=== PATIENT | female | born 1990 | race Caucasian/White ===

== ENCOUNTER 2016-12-20 19:44 | Observation (INO) | payer OTHER ==
[~2016-12-20] VITALS: Ht 152.4 cm; Wt 76.4 kg
[2016-12-20] MEDS ORDERED: FERR325C PO (20:12)
[2016-12-20] MEDS ORDERED: PREN1TAB79 PO (20:12)
[2016-12-20 20:13] VITALS: BP 101/60; PULSE 104; RESP 18; Ht 152.4 cm; Wt 76.4 kg
--- NOTE | 2016-12-20 20:52 | HP ---
Date/Time of Note Date/Time of Note DATE: 12/20/16 TIME: 20:47 OB - History Hx of Present Free Text/Dictation at 36 + weeks GA Chief Complaint: labor contractions : 2 Para: 1 Care: Good Care Obstetrical Complications: None Past Family/Social History * Past Medical, Surgical, Family and Obstetric Histories reviewed from chart. GBS Status: Negative OB Admission Exam Vital Signs Vital Signs Vital Signs Date Time Temp Pulse Resp B/P Pulse Ox O2 Delivery O2 Flow Rate FiO2 12/20/16 20:13 98.5 104 18 101/60 Room Air Physical Exam HEENT: WNL Abdomen: WNL Cervical Dilatation: 2cm Membranes: Intact Heart Rate: 140's Accelerations: Accelerations Present Decelerations: No Decelerations Varibility: Moderate Contractions on Admission: < 5 Minutes Apart Intensity: Moderate OB Assessment/Plan Reason for admission: active labor, labor Plan: Expectant Management Other plan: Anticipate KAREL JOHN Dec 20, 2016 20:52
[2016-12-20] MEDS ORDERED: CARBOPROST 250 MCG INJ IM PRN (21:00)
[2016-12-20] MEDS ORDERED: LACTATED RINGER'S 1,000 ML IV PRN (21:00)
[2016-12-20] MEDS ORDERED: BUTORPHANOL 2 MG INJ IV PRN (21:00)
[2016-12-20] MEDS ORDERED: OXYTOCIN 30 UNITS/LR 500 ML IV PRN (21:00)
[2016-12-20] MEDS ORDERED: LIDOCAINE 1% (MPF) 30 ML INJ INJ PRN (21:00)
[2016-12-20] MEDS ORDERED: OXYTOCIN 30 UNITS/LR 500 ML IV SCH ×2 (21:00)
[2016-12-20] MEDS ORDERED: METHYLERGONOVINE 0.2 MG INJ IM PRN (21:00)
[2016-12-20] MEDS ORDERED: MISOPROSTOL 200 MCG TAB PR PRN (21:00)
[2016-12-20] MEDS ORDERED: AMPICILLIN 2 GM/NS (PMX) 100 ML IV ONE (21:00)
[2016-12-20] MEDS ORDERED: IBUPROFEN 600 MG TAB PO PRN (21:00)
[2016-12-20 21:22] LABS: BASOPHILS % 0.5 % (0.0-2.0); EOSINOPHILS # 0.1 10^3/ul (0.0-0.5); EOSINOPHILS % 0.7 % (0.0-7.0); HEMATOCRIT 35.7 % (37.0-47.0); LYMPHOCYTES % 24.3 % (15.0-51.0); MEAN CORPUSCULAR HEMOGLOBIN 31.1 pg (29.0-33.0); MEAN CORPUSCULAR HGB CONC 33.7 g/dl (32.0-37.0); MEAN CORPUSCULAR VOLUME 92.5 fl (82.0-101.0); MEAN PLATELET VOLUME 8.8 fl (7.4-10.4); MONOCYTE # 0.8 10^3/ul (0.3-0.9); MONOCYTES % 9.8 % (0.0-11.0); NEUTROPHIL # 5.4 10^3/ul (1.6-7.5); NEUTROPHILS % 64.7 % (39.0-77.0); PLATELET COUNT 113 10^3/UL (140-440); RED BLOOD COUNT 3.85 10^6/ul (4.20-5.40); RED CELL DISTRIBUTION WIDTH 12.4 % (11.5-14.5); UNCORRECTED WBC 8.3 10^3/ul (4.8-10.8); WHITE BLOOD COUNT 8.3 10^3/ul (4.8-10.8)
[2016-12-20 21:23] LABS: CONDITION 1
[2016-12-20] MEDS: LACTATED RINGER'S 1,000 ML IV SCH (21:28)
[2016-12-20 21:32] LABS: INR 0.88; PROTIME 11.9 Sec (12.2-14.2); PT RATIO 0.9
[2016-12-20 21:33] LABS: PARTIAL THROMBOPLASTIN TIME 23.5 Sec (25.0-35.0)
--- NOTE | 2016-12-20 22:05 | TRIAGE ---
OB Triage Datetime Report Generated by CPN: 12/20/2016 22:04 Datetime: 12/20/2016 21:24 Vaginal Bleeding: None Maternal Assessment Level of Consciousness: Fully Conscious DTR's/Clonus: DTRs 2+; No Clonus Headache: Denies Blurred Vision: No Respiratory Effort: Unlabored; Regular Rhythm; Equal Expansion Breath Sounds, Left: Clear and Equal Breath Sounds, Right: Clear and Equal Nausea/Vomiting: Denies RUQ Epigastric Pain: Denies Facial Edema: None Fall Risk Assessment History of Falling: (0) No Secondary Diagnosis: (0) No Ambulatory Aid: (0) Bedrest/Nurse Assist Gait: (0) Normal/Bedrest/Immobile Mental Status: (0) Oriented to Own Ability Datetime: 12/20/2016 21:23 Assessment Type: Admission Assessment Vaginal Bleeding: None Maternal Assessment Level of Consciousness: Fully Conscious DTR's/Clonus: DTRs 2+; No Clonus Headache: Denies Blurred Vision: No Respiratory Effort: Unlabored; Regular Rhythm; Equal Expansion Breath Sounds, Left: Clear and Equal Breath Sounds, Right: Clear and Equal Nausea/Vomiting: Denies RUQ Epigastric Pain: Denies Lower Extremities Edema: Bilateral Lower Extremities Degree: 1+ Upper Extremities Edema: None Degree: None Facial Edema: None Fall Risk Assessment History of Falling: (0) No Secondary Diagnosis: (0) No Ambulatory Aid: (0) Bedrest/Nurse Assist IV Therapy: (20) Yes Gait: (0) Normal/Bedrest/Immobile Mental Status: (0) Oriented to Own Ability Fall Score: 20 Fall Risk Score Definition: No Risk: No action required Labor Evaluation Frequency: 2-3 Duration (sec)2399: 50-90 Quality: Moderate Pattern: Normal: <= 5 Contractions in 10 Minutes Resting Tone [place]: Relaxed Heart Rate FHR Baseline Rate: 130 Variability: Moderate 6-25 bpm Accelerations: 15X15 Decelerations: None Category: Category I Pain Assessment Pain Scale: 7 Pain Presence: Intermittent Pain Type: Cramping; Contraction Pain Location: Abdomen; Back; Perineum Vaginal Exam Dilatation (cms): 2.0 Effacement (%): 50 Station: -2 Membrane Status: Intact Datetime: 12/20/2016 21:22 Vaginal Bleeding: None Maternal Assessment Level of Consciousness: Fully Conscious DTR's/Clonus: DTRs 2+; No Clonus Headache: Denies Blurred Vision: No Respiratory Effort: Unlabored; Regular Rhythm; Equal Expansion Breath Sounds, Left: Clear and Equal Breath Sounds, Right: Clear and Equal Nausea/Vomiting: Denies RUQ Epigastric Pain: Denies Facial Edema: None Fall Risk Assessment History of Falling: (0) No Secondary Diagnosis: (0) No Ambulatory Aid: (0) Bedrest/Nurse Assist IV Therapy: (0) No Gait: (0) Normal/Bedrest/Immobile Mental Status: (0) Oriented to Own Ability Fall Score: 0 Fall Risk Score Definition: No Risk: No action required Datetime: 12/20/2016 20:21 Stage of : OB Triage Labor Evaluation Frequency: 2-5 Monitor Mode: External Duration (sec)2399: 60 Quality: Moderate Pattern: Normal: <= 5 Contractions in 10 Minutes Resting Tone [place]: Relaxed Heart Rate FHR Baseline Rate: 135 Monitor Mode: External US FHR Baseline Changes: No Baseline Change Variability: Moderate 6-25 bpm Accelerations: 15X15 Decelerations: None Category: Category I Vaginal Exam Dilatation (cms): 2.0 Effacement (%): 50 Station: -2 Exam By: E Eric Membrane Status: Intact Amniotic Fluid Amount: None Vaginal Bleeding: None Cervix, Consistency: Soft Cervix, Position: Midposition Presentation 'A': Cephalic Datetime: 12/20/2016 20:12 Time of Arrival: 12/20/2016 19:50 EGA: 36.4 Arrived By: Ambulatory Arrived From: Home Chief Complaint: c/o ucs. Denies hx problems this Movement: Present Contractions: Irregular Time Contractions Began: 12/20/2016 18:30 Contractions: Q7-10 Rupture of Membranes: Denies Vaginal Bleeding: None Vaginal Discharge: Denies Recent Sexual Intercouse: Denies Abdominal Trauma: Not Applicable Patient Complaints: Contractions; Urinary Frequency Time Provider Notified: 12/20/2016 20:31 Provider Notified: Dr Jasmine Initial Plan: EFM, SVE, UA Datetime: 12/20/2016 20:02 Maternal Assessment Level of Consciousness: Fully Conscious Headache: Denies Blurred Vision: No Nausea/Vomiting: Denies RUQ Epigastric Pain: Denies Facial Edema: None Labor Evaluation Frequency: placed Monitor Mode: External Resting Tone [place]: Relaxed Monitor Mode: External US Comments: FHT 140 Pain Assessment Pain Scale: 7 Pain Presence: Intermittent Pain Type: Contraction Pain Location: Abdomen
[2016-12-20 22:33] LABS: ADD UMIC YES; URINE BILIRUBIN (Dip) NEGATIVE (NEGATIVE); URINE BLOOD (Dip) NEGATIVE (NEGATIVE); URINE COLOR LT. YELLOW (YELLOW); URINE GLUCOSE (Dip) NEGATIVE (NEGATIVE); URINE KETONES (Dip) NEGATIVE (NEGATIVE); URINE LEUKOCYTE ESTERASE (Dip) 1+ (NEGATIVE); URINE NITRITE (Dip) NEGATIVE (NEGATIVE); URINE TOTAL PROTEIN (Dip) NEGATIVE (NEGATIVE); URINE UROBILINOGEN (Dip) 0.2 E.U./dL (0.1-1.0)
[2016-12-20 22:50] LABS: BACTERIA,URINE FEW; SQUAMOUS EPITHELIAL CELL,UR MODERATE; URINE RBCS NONE SEEN /HPF (0)
[2016-12-20 23:34] LABS: BARBITURATES Negative (NEGATIVE); BENZODIAZEPINES Negative (NEGATIVE); CANNABINOIDS Negative (NEGATIVE); COCAINE Negative (NEGATIVE); OPIATES Negative (NEGATIVE)
[2016-12-21] MEDS ORDERED: AMPICILLIN 1 GM/NS (PMX) 50 ML IV SCH (01:00)
[2016-12-21] MEDS: LACTATED RINGER'S 1,000 ML IV SCH ×3 (01:50→08:33)
--- NOTE | 2016-12-21 18:29 | DS ---
Date/Time of Note Date/Time of Note DATE: 12/21/16 TIME: 17:38 Discharge Summary Admission/Discharge Info Admit Date/Time Admission: Dec 20, 2016 at 20:31 Discharge Date/Time Dec 21, 2016 at 17:00 Final Diagnosis Intrauterine of 36 weeks and 4 days. This patient is a 26 years old, 2, para 1 ,living 1, whose EDC is 2016. She came into labor and delivery room in early labor yesterday. She was having regular contractions. On pelvic examination yesterday her cervix was about 2-1/2 cm dilated and 50% to 60% effaced ,-2 station. Membranes were intact. She was kept in the hospital for about 24 hours. Today on examination her cervix is about 80%effaced, however still about 2-1/2 cm and -2 station with intact membranes. Otherwise her physical examination is normal. heart tone is normal with good variability and accelerations no decelerations. Disposition. Due to lack of progress the condition was discussed with this the patient and she will be discharged home to be seen in the clinic in 4 days. She is advised in case she started her labor pain or any bleeding or rupture of membrane immediately returned to the labor delivery room or [facility]. Laboratory Tests Test 12/20/16 19:45 12/20/16 21:00 Urine Amphetamines Screen Negative Urine Bacteria FEW Urine Barbiturates Negative Urine Benzodiazepines Screen Negative Urine Bilirubin NEGATIVE Urine Cannabinoids Negative Urine Clarity CLEAR Urine Cocaine Screen Negative Urine Color LT. YELLOW Urine Glucose NEGATIVE% Urine Hemoglobin NEGATIVE Urine Ketones NEGATIVE Urine Leukocyte Esterase 1+ Urine Microscopic RBC NONE SEEN/HPF Urine Microscopic WBC 2-5/HPF Urine Nitrite NEGATIVE Urine Opiates Screen Negative Urine Specific [place] 1.010 Urine Squamous Epithelial Cells MODERATE Urine Total Protein NEGATIVE Urine Urobilinogen 0.2 E.U./dL Urine pH 7.0 Activated Partial Thromboplast Time 23.5Sec Basophils # 0.010^3/ul Basophils % 0.5% Eosinophils # 0.110^3/ul Eosinophils % 0.7% Hematocrit 35.7% Hemoglobin 12.0g/dl Hepatitis B Surface Antigen NEGATIVE INR International Normalized Ratio 0.88 Lymphocytes # 2.010^3/ul Lymphocytes % 24.3% Mean Corpuscular Hemoglobin 31.1pg Mean Corpuscular Hemoglobin Concent 33.7g/dl Mean Corpuscular Volume 92.5fl Mean Platelet Volume 8.8fl Monocytes # 0.810^3/ul Monocytes % 9.8% Neutrophils # 5.410^3/ul Neutrophils % 64.7% Nucleated Red Blood Cells # 0.010^3/ul Nucleated Red Blood Cells % 0.0/100WBC Platelet Count 80453^3/UL Prothrombin Time 11.9Sec Prothrombin Time Ratio 0.9 Rapid Plasma Reagin NONREACTIVE Red Blood Count 3.8510^6/ul Red Cell Distribution Width 12.4% White Blood Count 8.310^3/ul Current Medications Medications (Trade) Dose Ordered Sig/Daija Route PRN Reason Start Time Stop Time Status Last Admin Dose Admin Lactated Ringer's 1,000 ml @ 125 mls/hr Q8H IV 12/20/16 20:33 12/21/16 17:27 DC 12/21/16 08:33 Ampicillin 100 ml @ 100 mls/hr ONCE ONCE IV 12/20/16 21:00 12/20/16 21:31 DC Ampicillin (Ampicillin 1 Gm/ NS (Pmx)) 50 ml @ 100 mls/hr Q4H IV 12/21/16 01:00 12/21/16 01:00 DC Butorphanol Tartrate (Stadol) 2 mg Q2H PRN IV PAIN 12/20/16 21:00 12/21/16 17:27 DC Lidocaine 30 ml 30 ml ONCE PRN INJ EPISIOTOMY/TEARING 12/20/16 21:00 12/21/16 17:27 DC Oxytocin/Lactated Ringer's 500 ml @ 125 mls/hr ONCE -MAY REPEAT X1 IV 12/20/16 21:00 12/21/16 17:27 DC Oxytocin/Lactated Ringer's 500 ml @ 125 mls/hr ONCE IV 12/20/16 21:00 12/21/16 17:27 DC Ibuprofen 600 mg 600 mg ONCE PRN PO Mild Pain (Pain Score 1-3) 12/20/16 21:00 12/21/16 17:27 DC Lactated Ringer's 1,000 ml @ 2,000 mls/hr Q30M PRN IV PRE-EPIDURAL BOLUS 12/20/16 21:00 12/21/16 17:27 DC Oxytocin/Lactated Ringer's 500 ml @ 0 mls/hr ONCE PRN IV For Hemorrhage Management 12/20/16 21:00 12/21/16 17:27 DC Methylergonovine Maleate (Methergine) 0.2 mg ONCE PRN IM VAGINAL BLEEDING 12/20/16 21:00 12/21/16 17:27 DC Carboprost Tromethamine (Hemabate) 250 mcg ONCE PRN IM VAGINAL BLEEDING 12/20/16 21:00 12/21/16 17:27 DC Misoprostol (Cytotec) 1,000 mcg ONCE PRN MI VAGINAL BLEEDING 12/20/16 21:00 12/21/16 17:27 DC Patient Condition: Good Consults [employer] Procedures Antibiotic treatment Hx of Present Illness see discharge note Hospital Course rapid recovery Home Meds Reported Medications Ferrous Sulfate (Iron) 325 Mg Capsule.er, 325 MG PO DAILY, CAP 12/20/16 Vit W-Ca,Fe,FA(<1 mg) ( Vitamins) 1 Each Tablet, 1 EACH PO DAILY, TAB 12/20/16 Follow-up Plan To be seen in the clinic in 4 days Pending Labs Laboratory Tests Test 12/20/16 19:45 12/20/16 21:00 Urine Amphetamines Screen Negative (NEGATIVE) Urine Bacteria FEW Urine Barbiturates Negative (NEGATIVE) Urine Benzodiazepines Screen Negative (NEGATIVE) Urine Bilirubin NEGATIVE (NEGATIVE) Urine Cannabinoids Negative (NEGATIVE) Urine Clarity CLEAR (CLEAR) Urine Cocaine Screen Negative (NEGATIVE) Urine Color LT. YELLOW (YELLOW) Urine Glucose NEGATIVE% (NEGATIVE) Urine Hemoglobin NEGATIVE (NEGATIVE) Urine Ketones NEGATIVE (NEGATIVE) Urine Leukocyte Esterase 1+ (NEGATIVE) Urine Microscopic RBC NONE SEEN/HPF (0) Urine Microscopic WBC 2-5/HPF (0) Urine Nitrite NEGATIVE (NEGATIVE) Urine Opiates Screen Negative (NEGATIVE) Urine Specific [place] 1.010 (1.003-1.030) Urine Squamous Epithelial Cells MODERATE Urine Total Protein NEGATIVE (NEGATIVE) Urine Urobilinogen 0.2 E.U./dL (0.1-1.0) Urine pH 7.0 (5.0-9.0) Activated Partial Thromboplast Time 23.5Sec (25.0-35.0) Basophils # 0.010^3/ul (0.0-0.1) Basophils % 0.5% (0.0-2.0) Eosinophils # 0.110^3/ul (0.0-0.5) Eosinophils % 0.7% (0.0-7.0) Hematocrit 35.7% (37.0-47.0) Hemoglobin 12.0g/dl (12.0-16.0) Hepatitis B Surface Antigen NEGATIVE (NEGATIVE) INR International Normalized Ratio 0.88 Lymphocytes # 2.010^3/ul (0.8-2.9) Lymphocytes % 24.3% (15.0-51.0) Mean Corpuscular Hemoglobin 31.1pg (29.0-33.0) Mean Corpuscular Hemoglobin Concent 33.7g/dl (32.0-37.0) Mean Corpuscular Volume 92.5fl (82.0-101.0) Mean Platelet Volume 8.8fl (7.4-10.4) Monocytes # 0.810^3/ul (0.3-0.9) Monocytes % 9.8% (0.0-11.0) Neutrophils # 5.410^3/ul (1.6-7.5) Neutrophils % 64.7% (39.0-77.0) Nucleated Red Blood Cells # 0.010^3/ul (0.0-0.0) Nucleated Red Blood Cells % 0.0/100WBC (0.0-0.0) Platelet Count 24433^3/UL (140-440) Prothrombin Time 11.9Sec (12.2-14.2) Prothrombin Time Ratio 0.9 Rapid Plasma Reagin NONREACTIVE (NR) Red Blood Count 3.8510^6/ul (4.20-5.40) Red Cell Distribution Width 12.4% (11.5-14.5) White Blood Count 8.310^3/ul (4.8-10.8) BOBO LAMA MD Dec 21, 2016 17:50
== END 2016-12-21 17:00 | disposition home or self-care (01) ==
LOC: OBT 19:44 → L-D 19:44 → INTOOBSV 20:31 → OBT 20:31 → L-D 20:31
PROVIDERS: ADMIT Obstetrics & Gynecology; ATTEND Obstetrics & Gynecology
DX: O47.03 False labor before 37 completed weeks of gestation, third trimester (principal); Z3A.36 36 weeks gestation of pregnancy
CPT/HCPCS: 80307; 81001; 85025; 85610; 85730; 86592; 86900; 86901; 87340; J7120; Z7500; 81003; 99217; G0378

== ENCOUNTER 2017-01-08 20:55 | Inpatient (IN) | payer OTHER ==
[~2017-01-08] VITALS: Ht 152.4 cm; Wt 78.2 kg
[2017-01-08 20:53] VITALS: Ht 152.4 cm; Wt 78.2 kg
[~2017-01-08 20:55] MED LIST: FERR325C PO; PREN1TAB79 PO
[2017-01-08 21:00] VITALS: BP 119/76; PULSE 76; RESP 20
[2017-01-08] MEDS ORDERED: LACTATED RINGER'S 1,000 ML IV SCH (21:08)
--- NOTE | 2017-01-08 21:16 | TRIAGE ---
OB Triage Datetime Report Generated by CPN: 01/08/2017 21:15 Datetime: 01/08/2017 21:06 Assessment Type: Admission Assessment Maternal Assessment Level of Consciousness: Fully Conscious DTR's/Clonus: DTRs 2+; No Clonus Blurred Vision: No Breath Sounds, Left: Clear and Equal Breath Sounds, Right: Clear and Equal Nausea/Vomiting: Denies RUQ Epigastric Pain: Denies Lower Extremities Edema: Bilateral Lower Extremities Degree: 1+ Upper Extremities Edema: None Degree: None Facial Edema: None Fall Risk Assessment History of Falling: (0) No Secondary Diagnosis: (0) No Ambulatory Aid: (0) Bedrest/Nurse Assist IV Therapy: (0) No Gait: (0) Normal/Bedrest/Immobile Mental Status: (0) Oriented to Own Ability Fall Score: 0 Fall Risk Score Definition: No Risk: No action required Pain Assessment Pain Scale: 10 Pain Presence: Intermittent Pain Type: Contraction Pain Location: Abdomen Pain Goal: 0 Membrane Status: Intact Datetime: 01/08/2017 21:05 Time of Arrival: 01/08/2017 21:05 EGA: 39.2 Arrived By: Ambulatory Arrived From: Home Datetime: 01/08/2017 21:00 Stage of : OB Triage Assessment Type: Triage Maternal Assessment Level of Consciousness: Fully Conscious DTR's/Clonus: DTRs 2+; No Clonus Headache: Denies Blurred Vision: No Respiratory Effort: Unlabored; Regular Rhythm; Equal Expansion Breath Sounds, Left: Clear and Equal Breath Sounds, Right: Clear and Equal Nausea/Vomiting: Denies RUQ Epigastric Pain: Denies Facial Edema: None Temperature Route: Oral Fall Risk Assessment History of Falling: (0) No Secondary Diagnosis: (0) No Ambulatory Aid: (0) Bedrest/Nurse Assist IV Therapy: (0) No Gait: (0) Normal/Bedrest/Immobile Mental Status: (0) Oriented to Own Ability Fall Score: 0 Fall Risk Score Definition: No Risk: No action required Pain Assessment Pain Scale: 8 Pain Presence: Intermittent Pain Type: Cramping Pain Location: Abdomen Datetime: 01/08/2017 20:58 Vaginal Exam Dilatation (cms): 9.0 Effacement (%): 90 Station: -2 Exam By: Kapil Christiansen RN Membrane Status: Bulging Presentation 'A': Cephalic Datetime: 01/08/2017 20:55 Time of Arrival: 01/08/2017 20:53 EGA: 39.2 Arrived By: Wheelchair Arrived From: Home Chief Complaint: UC's since 193 Movement: Present Contractions: Regular Time Contractions Began: 01/08/2017 19:30 Contractions: Every 5 minutes Rupture of Membranes: Denies Vaginal Bleeding: Scant Vaginal Discharge: Denies Recent Sexual Intercouse: Denies Abdominal Trauma: Not Applicable Patient Complaints: Contractions Time Provider Notified: 01/08/2017 21:00 Provider Notified: Dr. Gutierrez Initial Plan: CEFM, VE Datetime: 12/21/2016 16:40 Labor Evaluation Frequency: X4 Monitor Mode: External Duration (sec)2399: 70-120 Pattern: Normal: <= 5 Contractions in 10 Minutes Resting Tone [place]: Relaxed Contraction Comments: PT. DENIES FEELING PAIN OR UC'S Heart Rate FHR Baseline Rate: 130 Monitor Mode: External US Variability: Moderate 6-25 bpm Accelerations: 15X15 Decelerations: None Category: Category I Pain Presence: None/Denies Datetime: 12/21/2016 16:12 Stage of : Labor Temperature Route: Oral Labor Evaluation Frequency: IRREG Monitor Mode: External Duration (sec)2399: 90-120 Pattern: Normal: <= 5 Contractions in 10 Minutes Resting Tone [place]: Relaxed Heart Rate FHR Baseline Rate: 120 Monitor Mode: External US Variability: Moderate 6-25 bpm Accelerations: 15X15 Decelerations: None Category: Category I Pain Presence: None/Denies Datetime: 12/21/2016 16:02 Vaginal Exam Dilatation (cms): 2.5 Effacement (%): 80 Station: -2 Exam By: DR. ALEXIS. Datetime: 12/21/2016 15:37 Contraction Comments: pt. denies feeling pain or uc's Datetime: 12/21/2016 14:19 Labor Evaluation Frequency: IRREGULAR Duration (sec)2399: 60-80 Quality: Mild Pattern: Normal: <= 5 Contractions in 10 Minutes Resting Tone [place]: Relaxed Heart Rate FHR Baseline Rate: 130 Monitor Mode: External US FHR Baseline Changes: No Baseline Change Variability: Moderate 6-25 bpm Accelerations: 15X15 Decelerations: None Category: Category I Datetime: 12/21/2016 12:06 Comments: BACK TO BED Datetime: 12/21/2016 11:49 Labor Evaluation Frequency: OCCASIONAL Monitor Mode: External Duration (sec)2399: 60-80 Quality: Mild Pattern: Normal: <= 5 Contractions in 10 Minutes Resting Tone [place]: Relaxed Heart Rate FHR Baseline Rate: 135 Monitor Mode: External US FHR Baseline Changes: No Baseline Change Variability: Moderate 6-25 bpm Accelerations: 15X15 Decelerations: None Category: Category I Pain Assessment Pain Scale: 0 Pain Presence: None/Denies Membrane Status: Intact Datetime: 12/21/2016 09:54 Contraction Comments: given another toco Datetime: 12/21/2016 09:50 Assessment Type: Ongoing Assessment Maternal Assessment Level of Consciousness: Fully Conscious DTR's/Clonus: DTRs 2+; No Clonus Headache: Denies Blurred Vision: No Respiratory Effort: Unlabored; Regular Rhythm; Equal Expansion Breath Sounds, Left: Clear and Equal Breath Sounds, Right: Clear and Equal Nausea/Vomiting: Denies RUQ Epigastric Pain: Denies Lower Extremities Edema: None Degree: None Upper Extremities Edema: None Degree: None Facial Edema: None Fall Risk Assessment History of Falling: (0) No Secondary Diagnosis: (0) No Ambulatory Aid: (0) Bedrest/Nurse Assist IV Therapy: (20) Yes Gait: (0) Normal/Bedrest/Immobile Mental Status: (0) Oriented to Own Ability Fall Score: 20 Fall Risk Score Definition: No Risk: No action required Datetime: 12/21/2016 09:49 Labor Evaluation Frequency: 0 Monitor Mode: External Resting Tone [place]: Relaxed Heart Rate FHR Baseline Rate: 140 Monitor Mode: External US FHR Baseline Changes: No Baseline Change Variability: Moderate 6-25 bpm Accelerations: 15X15 Decelerations: None Category: Category I Pain Assessment Pain Scale: 0 Pain Presence: None/Denies Datetime: 12/21/2016 08:49 Labor Evaluation Frequency: IRREG Monitor Mode: External Duration (sec)2399: 60-100 Pattern: Normal: <= 5 Contractions in 10 Minutes Resting Tone [place]: Relaxed Heart Rate FHR Baseline Rate: 130 Monitor Mode: External US Variability: Moderate 6-25 bpm Accelerations: 15X15 Decelerations: None Category: Category I Pain Assessment Pain Scale: 3 Pain Presence: Intermittent Pain Type: Contraction Pain Location: Abdomen Pain Relief Measures: Comfort Measures Datetime: 12/21/2016 08:03 Labor Evaluation Frequency: IRREG Monitor Mode: External Duration (sec)2399: 60-110 Pattern: Normal: <= 5 Contractions in 10 Minutes Resting Tone [place]: Relaxed Heart Rate FHR Baseline Rate: 125 Monitor Mode: External US Variability: Moderate 6-25 bpm Accelerations: 15X15 Decelerations: None Category: Category I Datetime: 12/21/2016 07:32 Assessment Type: Ongoing Assessment Maternal Assessment Level of Consciousness: Fully Conscious DTR's/Clonus: DTRs 2+; No Clonus Headache: Denies Blurred Vision: No Respiratory Effort: Unlabored; Regular Rhythm; Equal Expansion Breath Sounds, Left: Clear and Equal Breath Sounds, Right: Clear and Equal Nausea/Vomiting: Denies RUQ Epigastric Pain: Denies Lower Extremities Edema: None Degree: None Upper Extremities Edema: None Degree: None Facial Edema: None Fall Risk Assessment History of Falling: (0) No Secondary Diagnosis: (0) No Ambulatory Aid: (0) Bedrest/Nurse Assist IV Therapy: (20) Yes Gait: (0) Normal/Bedrest/Immobile Mental Status: (0) Oriented to Own Ability Fall Score: 20 Fall Risk Score Definition: No Risk: No action required Labor Evaluation Frequency: 2-5 Monitor Mode: External Duration (sec)2399: 70-120 Pattern: Normal: <= 5 Contractions in 10 Minutes Resting Tone [place]: Relaxed Heart Rate FHR Baseline Rate: 125 Monitor Mode: External US Variability: Moderate 6-25 bpm Accelerations: 15X15 Decelerations: None Category: Category I Pain Presence: None/Denies Datetime: 12/21/2016 07:02 Labor Evaluation Frequency: 3-6 Monitor Mode: External Duration (sec)2399: 30-60 Quality: Mild Pattern: Normal: <= 5 Contractions in 10 Minutes Resting Tone [place]: Relaxed Heart Rate FHR Baseline Rate: 125 Monitor Mode: External US FHR Baseline Changes: No Baseline Change Variability: Moderate 6-25 bpm Accelerations: 10X10 Decelerations: None Category: Category I Datetime: 12/21/2016 06:48 Vaginal Exam Dilatation (cms): 2.5 Effacement (%): 50 Station: -2 Exam By: N LONG, RN Membrane Status: Intact Datetime: 12/21/2016 06:29 Labor Evaluation Frequency: 1-7 Monitor Mode: External Duration (sec)2399: 60-90 Quality: Mild Pattern: Normal: <= 5 Contractions in 10 Minutes Resting Tone [place]: Relaxed Heart Rate FHR Baseline Rate: 130 Monitor Mode: External US FHR Baseline Changes: No Baseline Change Variability: Moderate 6-25 bpm Accelerations: 10X10 Decelerations: None Category: Category I Datetime: 12/21/2016 06:22 Pain Assessment Pain Scale: 0 Pain Presence: None/Denies Pain Type: N/A Pain Goal: 0 Pain Relief Measures: Comfort Measures Datetime: 12/21/2016 05:30 Labor Evaluation Frequency: 2-5 Monitor Mode: External Duration (sec)2399: 60-120 Quality: Mild Resting Tone [place]: Relaxed Heart Rate FHR Baseline Rate: 130 Monitor Mode: External US FHR Baseline Changes: No Baseline Change Variability: Minimal - Undetectable to <=5 bpm (Annotations: with periods of moderate variability noted; pt sleeping and variability increases with side, positional change to lateral, and iv bolus) Accelerations: 15X15 Decelerations: None Category: Category I Datetime: 12/21/2016 05:22 Pain Assessment Pain Scale: 0 Pain Presence: None/Denies Pain Goal: 0 Pain Relief Measures: Comfort Measures Datetime: 12/21/2016 05:10 Monitor Mode: External US Datetime: 12/21/2016 05:00 Monitor Mode: External US Datetime: 12/21/2016 04:30 Labor Evaluation Frequency: 3-6 Monitor Mode: External Duration (sec)2399: 60-120 Quality: Mild Resting Tone [place]: Relaxed Heart Rate FHR Baseline Rate: 130 Monitor Mode: External US FHR Baseline Changes: No Baseline Change Variability: Moderate 6-25 bpm Accelerations: 15X15 Decelerations: None Category: Category I Datetime: 12/21/2016 04:22 Temperature Route: Oral Pain Assessment Pain Scale: 6 Pain Presence: Intermittent Pain Type: Contraction Pain Location: Abdomen Pain Goal: 6 Pain Relief Measures: Comfort Measures Datetime: 12/21/2016 04:08 Interventions: Side to Side; IV Bolus Datetime: 12/21/2016 03:37 Monitor Mode: External Monitor Mode: External US Datetime: 12/21/2016 03:30 Labor Evaluation Frequency: 2-4 Monitor Mode: External Duration (sec)2399: 60-120 Quality: Mild Resting Tone [place]: Relaxed Heart Rate FHR Baseline Rate: 130 Monitor Mode: External US FHR Baseline Changes: No Baseline Change Variability: Moderate 6-25 bpm Accelerations: 15X15 Decelerations: Early Category: Category I Datetime: 12/21/2016 03:22 Pain Assessment Pain Scale: 6 Pain Presence: Intermittent Pain Type: Contraction Pain Location: Abdomen Pain Goal: 6 Pain Relief Measures: Comfort Measures Datetime: 12/21/2016 02:35 Interventions: Side to Side; IV Bolus Datetime: 12/21/2016 02:32 Monitor Mode: External Datetime: 12/21/2016 02:29 Labor Evaluation Frequency: 2-3 Monitor Mode: External Duration (sec)2399: 60-70 Quality: Mild Resting Tone [place]: Relaxed Interventions: Side to Side; IV Bolus Heart Rate FHR Baseline Rate: 130 Monitor Mode: External US FHR Baseline Changes: No Baseline Change Accelerations: 15X15 Decelerations: Variable (Annotations: X1 DOWN TO 100) Category: Category II Datetime: 12/21/2016 02:22 Pain Assessment Pain Scale: 6 Pain Presence: Intermittent Pain Type: Contraction Pain Location: Abdomen Pain Goal: 6 Pain Relief Measures: Comfort Measures Datetime: 12/21/2016 02:01 Monitor Mode: External US Datetime: 12/21/2016 01:45 Monitor Mode: External US Datetime: 12/21/2016 01:34 Interventions: Side to Side Datetime: 12/21/2016 01:30 Labor Evaluation Frequency: 2-3 Monitor Mode: External Duration (sec)2399: 60-70 Quality: Mild Resting Tone [place]: Relaxed Heart Rate FHR Baseline Rate: 130 Monitor Mode: External US FHR Baseline Changes: No Baseline Change Variability: Moderate 6-25 bpm Accelerations: 15X15 Decelerations: None Category: Category I Datetime: 12/21/2016 01:22 Pain Assessment Pain Scale: 6 Pain Presence: Intermittent Pain Type: Contraction Pain Location: Abdomen Pain Goal: 6 Pain Relief Measures: Comfort Measures Datetime: 12/21/2016 00:30 Labor Evaluation Frequency: 2-3 Monitor Mode: External Duration (sec)2399: 60-70 Quality: Mild Resting Tone [place]: Relaxed Heart Rate FHR Baseline Rate: 130 Monitor Mode: External US FHR Baseline Changes: No Baseline Change Variability: Moderate 6-25 bpm Accelerations: 15X15 Decelerations: None Category: Category I Datetime: 12/21/2016 00:22 Pain Assessment Pain Scale: 6 Pain Presence: Intermittent Pain Type: Contraction Pain Location: Abdomen Pain Goal: 6 Pain Relief Measures: Comfort Measures Datetime: 12/21/2016 00:06 Monitor Mode: External US Datetime: 12/20/2016 23:52 Monitor Mode: External US Datetime: 12/20/2016 23:37 Assessment Type: Ongoing Assessment Maternal Assessment Level of Consciousness: Fully Conscious DTR's/Clonus: DTRs 2+; No Clonus Headache: Denies Blurred Vision: No Respiratory Effort: Unlabored; Regular Rhythm; Equal Expansion Breath Sounds, Left: Clear and Equal Breath Sounds, Right: Clear and Equal Nausea/Vomiting: Denies RUQ Epigastric Pain: Denies Lower Extremities Edema: None Degree: None Upper Extremities Edema: None Degree: None Facial Edema: None Temperature Route: Oral Fall Risk Assessment History of Falling: (0) No Secondary Diagnosis: (0) No Ambulatory Aid: (0) Bedrest/Nurse Assist IV Therapy: (0) No Gait: (0) Normal/Bedrest/Immobile Mental Status: (0) Oriented to Own Ability Fall Score: 0 Fall Risk Score Definition: No Risk: No action required Labor Evaluation Frequency: 2-3 Monitor Mode: External Duration (sec)2399: 60-70 Quality: Mild Resting Tone [place]: Relaxed Heart Rate FHR Baseline Rate: 130 Monitor Mode: External US FHR Baseline Changes: No Baseline Change Variability: Moderate 6-25 bpm Accelerations: 15X15 Decelerations: None Category: Category I Pain Assessment Pain Scale: 6 Pain Presence: Intermittent Pain Type: Contraction Pain Location: Abdomen Pain Goal: 6 Pain Relief Measures: Comfort Measures (Annotations: PAIN MANAGMENT DISCUSSED; PAIN MEDS REFUSED; PT STATES SHE WILL ASK IF SHE NEEDS MEDS BUT AT THIS TIME SHE IS SURE SHE WANTS TO TRY TO DELIVER WI THOUT NEEDING ANY PAIN MED) Vaginal Exam Dilatation (cms): 2.0 Effacement (%): 50 Station: -2 Membrane Status: Intact Datetime: 12/20/2016 23:00 Labor Evaluation Frequency: 2-3 Monitor Mode: External Duration (sec)2399: 50-90 Quality: Moderate Pattern: Normal: <= 5 Contractions in 10 Minutes Resting Tone [place]: Relaxed Heart Rate FHR Baseline Rate: 130 Monitor Mode: External US FHR Baseline Changes: No Baseline Change Variability: Moderate 6-25 bpm Accelerations: 15X15 Decelerations: None Category: Category I Pain Assessment Pain Scale: 7 Pain Presence: Intermittent Pain Type: Contraction Pain Location: Abdomen Pain Assessment Comments: PT DECLINES PAIN MEDICATION AT THIS TIME Datetime: 12/20/2016 22:00 Labor Evaluation Frequency: 2-3 Monitor Mode: External Duration (sec)2399: 50-90 Quality: Moderate Pattern: Normal: <= 5 Contractions in 10 Minutes Resting Tone [place]: Relaxed Heart Rate FHR Baseline Rate: 130 Monitor Mode: External US FHR Baseline Changes: No Baseline Change Variability: Moderate 6-25 bpm Accelerations: 15X15 Decelerations: None Category: Category I Datetime: 12/20/2016 21:23 Fall Score: 20 Fall Risk Score Definition: No Risk: No action required Datetime: 12/20/2016 21:22 Fall Score: 0 Fall Risk Score Definition: No Risk: No action required Datetime: 12/20/2016 20:31 Stage of : OB Triage Labor Evaluation Frequency: 2-3 Monitor Mode: External Quality: Moderate Pattern: Normal: <= 5 Contractions in 10 Minutes Resting Tone [place]: Relaxed Heart Rate FHR Baseline Rate: 135 Monitor Mode: External US FHR Baseline Changes: No Baseline Change Variability: Moderate 6-25 bpm Accelerations: 15X15 Decelerations: None Category: Category I Datetime: 12/20/2016 20:12 EGA: 36.4
[2017-01-08] MEDS ORDERED: LACTATED RINGER'S 1,000 ML IV PRN (21:30)
[2017-01-08] MEDS ORDERED: OXYTOCIN 30 UNITS/LR 500 ML IV SCH ×2 (21:30)
[2017-01-08] MEDS ORDERED: ACETAMINOPHEN/CODEINE #3 TAB PO PRN (21:30)
[2017-01-08] MEDS ORDERED: OXYTOCIN 30 UNITS/LR 500 ML IV PRN (21:30)
[2017-01-08] MEDS ORDERED: IBUPROFEN 600 MG TAB PO PRN (21:30)
[2017-01-08] MEDS ORDERED: BUTORPHANOL 2 MG INJ IV PRN (21:30)
[2017-01-08] MEDS ORDERED: METHYLERGONOVINE 0.2 MG INJ IM PRN (21:30)
[2017-01-08] MEDS ORDERED: LIDOCAINE 1% (MPF) 30 ML INJ INJ PRN (21:30)
[2017-01-08] MEDS ORDERED: MISOPROSTOL 200 MCG TAB PR PRN (21:30)
[2017-01-08] MEDS ORDERED: CARBOPROST 250 MCG INJ IM PRN (21:30)
[2017-01-08 21:35] LABS: BASOPHILS % 0.4 % (0.0-2.0); EOSINOPHILS % 0.5 % (0.0-7.0); HEMATOCRIT 36.9 % (37.0-47.0); HEMOGLOBIN 12.6 g/dl (12.0-16.0); INR 0.86; LYMPHOCYTES # 3.1 10^3/ul (0.8-2.9); LYMPHOCYTES % 33.5 % (15.0-51.0); MEAN CORPUSCULAR HEMOGLOBIN 31.7 pg (29.0-33.0); MEAN CORPUSCULAR HGB CONC 34.3 g/dl (32.0-37.0); MEAN CORPUSCULAR VOLUME 92.6 fl (82.0-101.0); MEAN PLATELET VOLUME 9.8 fl (7.4-10.4); MONOCYTES % 10.8 % (0.0-11.0); NEUTROPHIL # 5.1 10^3/ul (1.6-7.5); NEUTROPHILS % 54.8 % (39.0-77.0); PLATELET COUNT 133 10^3/UL (140-440); PROTIME 11.7 Sec (12.2-14.2); PT RATIO 0.9; RED BLOOD COUNT 3.98 10^6/ul (4.20-5.40); RED CELL DISTRIBUTION WIDTH 12.9 % (11.5-14.5); UNCORRECTED WBC 9.3 10^3/ul (4.8-10.8); WHITE BLOOD COUNT 9.3 10^3/ul (4.8-10.8)
[2017-01-08 21:36] LABS: PARTIAL THROMBOPLASTIN TIME 23.5 Sec (25.0-35.0)
[2017-01-08 21:51] LABS: CONDITION 1
--- NOTE | 2017-01-08 22:23 | LDN ---
Date/Time of Note Date/Time of Note DATE: 01/08/17 TIME: 22:18 Delivery Summary Normal spontaneous vaginal delivery of a baby girl from ELYSIA position shoulders delivered with no difficulty baby's body followed nasal oropharyngeal suction was performed cord clamp after sterile conversation pleasant spontaneous expulsion inspected complete patient sustained small first-degree perineal laceration repair with 3-0 Vicryl estimated blood loss 200 mL Placenta Delivered: Spontaneously Meconium: none Perineum intact?: No Perineal laceration repair: First-degree perineal laceration repaired with 3-0 Vicryl Anesthesia type: Local Sponge & Needle done & correct: Yes All needle counts correct: Yes Any foreign bodies felt in the: No Problems: Infant Delivery Information Sex Sex: female Apgars 1 Minute: 9 5 Minute: 9 Suctioning Nose & mouth suctioned at figu[place]a: Yes Delee suction performed: No Umbilical Cord Umbilical cord with: 3 Vessels Cord presentations: no nuchal cord RED GOODE MD Jan 08, 2017 22:23
--- NOTE | 2017-01-08 22:31 | HP ---
Date/Time of Note Date/Time of Note DATE: 01/08/17 TIME: 22:23 OB - History Hx of Present Free Text/Dictation 26 years old female admitted to [facility] 39 weeks gestation in active labor, pelvic examination on admission cervix 9 cm dilated 100% effaced intact membrane vertex presentation at 0 station History of present , patient has been getting her care at [facility] and her is not complicated with - induced hypertension and gestational diabetes or any other medical or surgical conditions LION HUNTER history menarche at age 12. 28-32 days lasting for 5 days history of 1 previous with normal vaginal delivery Allergies denies allergy to any known medication Social habit.denies smoking or drinking Review of system within normal Estimated Due Date: Jan 13, 2017 : 2 Para: 1 Care: Good Care Ultrasounds: Normal mid trimester US Obstetrical Complications: None Medical Complications: None Past Family/Social History * Past Medical, Surgical, Family and Obstetric Histories reviewed from chart. Rubella: immune RPR/VDRL: Negative GBS Status: Negative HBsAG: Negative OB Admission Exam Vital Signs Vital Signs Vital Signs Date Time Temp Pulse Resp B/P Pulse Ox O2 Delivery O2 Flow Rate FiO2 01/08/17 21:00 97.7 76 20 119/76 Room Air Physical Exam HEENT: WNL Heart: Rhythm Normal Lungs: Clear, Equal Abdomen: WNL Extremities: Normal Reflexes: Normal Cervical Dilatation: 9cm Effacement: 100% Station: -1 Membranes: Intact Heart Rate: 130's Accelerations: Accelerations Present Varibility: Moderate Contractions on Admission: < 5 Minutes Apart Intensity: Moderate Last 72 hours Lab Results CBC & BMP 01/08/17 20:50 RED GOODE MD Jan 08, 2017 22:31
[2017-01-08 23:40] VITALS: BP 121/66; PULSE 69; RESP 20
[2017-01-09] MEDS ORDERED: ACETAMINOPHEN/CODEINE #3 TAB PO PRN ×2 (00:30)
[2017-01-09] MEDS ORDERED: LANOLIN 7 GM TUBE TOP PRN (00:30)
[2017-01-09] MEDS ORDERED: DIBUCAINE 1% 30 GM OINT PR PRN (00:30)
[2017-01-09] MEDS ORDERED: WITCH HAZEL/GLYCERIN PAD PR PRN (00:30)
[2017-01-09] MEDS ORDERED: ONDANSETRON 4 MG INJ IV PRN (00:30)
[2017-01-09] MEDS ORDERED: OXYCODONE/ASPIRIN (4.88/325) TAB PO PRN ×2 (00:30)
[2017-01-09] MEDS ORDERED: ACETAMINOPHEN 325 MG TAB PO PRN (00:30)
[2017-01-09] MEDS ORDERED: BENZOCAINE 20% 56 ML SPRAY TOP PRN (00:30)
[2017-01-09] MEDS: OXYTOCIN 30 UNITS/LR 500 ML IV SCH ×2 (03:40→04:21)
[2017-01-09 04:40] VITALS: BP 102/58; PULSE 68; RESP 18
[2017-01-09] MEDS: IBUPROFEN 600 MG TAB PO SCH ×3 (05:29→18:17)
[2017-01-09 06:59] LABS: BASOPHILS % 0.3 % (0.0-2.0); EOSINOPHILS % 0.1 % (0.0-7.0); HEMATOCRIT 31.8 % (37.0-47.0); LYMPHOCYTES # 1.3 10^3/ul (0.8-2.9); MEAN CORPUSCULAR HEMOGLOBIN 32.2 pg (29.0-33.0); MEAN CORPUSCULAR HGB CONC 34.6 g/dl (32.0-37.0); MEAN CORPUSCULAR VOLUME 93.1 fl (82.0-101.0); MEAN PLATELET VOLUME 9.9 fl (7.4-10.4); MONOCYTE # 1.1 10^3/ul (0.3-0.9); MONOCYTES % 10.2 % (0.0-11.0); NEUTROPHIL # 7.9 10^3/ul (1.6-7.5); NEUTROPHILS % 76.4 % (39.0-77.0); PLATELET COUNT 104 10^3/UL (140-440); RED BLOOD COUNT 3.42 10^6/ul (4.20-5.40); RED CELL DISTRIBUTION WIDTH 12.6 % (11.5-14.5); UNCORRECTED WBC 10.4 10^3/ul (4.8-10.8); WHITE BLOOD COUNT 10.4 10^3/ul (4.8-10.8)
[2017-01-09 07:16] LABS: CONDITION 1
[2017-01-09 08:30] VITALS: BP 99/63; PULSE 74; RESP 18
[2017-01-09] MEDS: SENNA/DOCUSATE NA (8.6MG/50MG) TAB PO SCH ×2 (09:34→21:45)
[2017-01-09 12:00] VITALS: BP 103/55; PULSE 76; RESP 19
[2017-01-09 16:19] VITALS: BP 98/64; PULSE 73; RESP 17
--- NOTE | 2017-01-09 16:24 | PN ---
Date/Time of Note Date/Time of Note DATE: 01/09/17 TIME: 16:23 OB Subjective Subjective Subjective day 1 Afebrile, vital sign stable, abdomen soft, uterus firm, lochia normal, extremity normal Laboratory Tests Test 01/08/17 20:50 01/09/17 06:37 Activated Partial Thromboplast Time 23.5Sec Basophils # 0.010^3/ul 0.010^3/ul Basophils % 0.4% 0.3% Eosinophils # 0.010^3/ul 0.010^3/ul Eosinophils % 0.5% 0.1% Hematocrit 36.9% 31.8% Hemoglobin 12.6g/dl 11.0g/dl INR International Normalized Ratio 0.86 Lymphocytes # 3.110^3/ul 1.310^3/ul Lymphocytes % 33.5% 13.0% Mean Corpuscular Hemoglobin 31.7pg 32.2pg Mean Corpuscular Hemoglobin Concent 34.3g/dl 34.6g/dl Mean Corpuscular Volume 92.6fl 93.1fl Mean Platelet Volume 9.8fl 9.9fl Monocytes # 1.010^3/ul 1.110^3/ul Monocytes % 10.8% 10.2% Neutrophils # 5.110^3/ul 7.910^3/ul Neutrophils % 54.8% 76.4% Nucleated Red Blood Cells # 0.010^3/ul 0.010^3/ul Nucleated Red Blood Cells % 0.0/100WBC 0.0/100WBC Platelet Count 84664^3/UL 30515^3/UL Prothrombin Time 11.7Sec Prothrombin Time Ratio 0.9 Red Blood Count 3.9810^6/ul 3.4210^6/ul Red Cell Distribution Width 12.9% 12.6% White Blood Count 9.310^3/ul 10.410^3/ul Current Medications Medications (Trade) Dose Ordered Sig/Daija Route PRN Reason Start Time Stop Time Status Last Admin Dose Admin Lactated Ringer's (Lr) 1,000 ml @ 125 mls/hr Q8H IV 01/08/17 21:08 01/09/17 00:27 DC 01/08/17 21:27 Butorphanol Tartrate (Stadol) 2 mg Q2H PRN IV PAIN 01/08/17 21:30 01/09/17 00:27 DC Lidocaine 30 ml 30 ml ONCE PRN INJ EPISIOTOMY/TEARING 01/08/17 21:30 01/09/17 00:27 DC Oxytocin/Lactated Ringer's 500 ml @ 125 mls/hr ONCE -MAY REPEAT X1 IV 01/08/17 21:30 01/09/17 00:27 DC 01/08/17 21:48 Oxytocin/Lactated Ringer's 500 ml @ 125 mls/hr ONCE IV 01/08/17 21:30 01/09/17 00:27 DC 01/08/17 22:10 Ibuprofen (Motrin) 600 mg ONCE PRN PO Mild Pain (Pain Score 1-3) 01/08/17 21:30 01/09/17 00:27 DC 01/08/17 22:23 Acetaminophen/ Codeine Phosphate 2 tab 2 tab ONCE PRN PO Moderate to Severe Pain (4-10) 01/08/17 21:30 01/09/17 00:27 DC Lactated Ringer's 1,000 ml @ 2,000 mls/hr Q30M PRN IV PRE-EPIDURAL BOLUS 01/08/17 21:30 01/09/17 00:27 DC Oxytocin/Lactated Ringer's 500 ml @ 0 mls/hr ONCE PRN IV For Hemorrhage Management 01/08/17 21:30 01/09/17 00:27 DC Methylergonovine Maleate (Methergine) 0.2 mg ONCE PRN IM VAGINAL BLEEDING 01/08/17 21:30 01/09/17 00:27 DC Carboprost Tromethamine (Hemabate) 250 mcg ONCE PRN IM VAGINAL BLEEDING 01/08/17 21:30 01/09/17 00:27 DC Misoprostol 1000 mcg 1,000 mcg ONCE PRN CO VAGINAL BLEEDING 01/08/17 21:30 01/09/17 00:27 DC Oxytocin/Lactated Ringer's 500 ml @ 125 mls/hr Q4H IV 01/09/17 00:21 01/09/17 08:20 DC 01/09/17 03:40 Ibuprofen (Motrin) 600 mg Q6 PO 01/09/17 06:00 01/09/17 13:12 Acetaminophen (Tylenol Tab) 650 mg Q4H PRN PO PAIN LEVEL 1-5 01/09/17 00:30 Acetaminophen/ Codeine Phosphate (Tylenol No.3) 1 tab Q4H PRN PO PAIN LEVEL 1-5 01/09/17 00:30 Acetaminophen/ Codeine Phosphate (Tylenol No.3) 2 tab Q4H PRN PO PAIN LEVEL 6-10 01/09/17 00:30 Oxycodone/Aspirin (Percodan) 1 tab Q3H PRN PO PAIN LEVEL 1-5 01/09/17 00:30 Oxycodone/Aspirin (Percodan) 2 tab Q3H PRN PO PAIN LEVEL 6-10 01/09/17 00:30 Ondansetron HCl (Zofran Inj) 4 mg Q6H PRN IV NAUSEA AND/OR VOMITING 01/09/17 00:30 Senna/Docusate Sodium (Senokot-S) 1 tab BID PO 01/09/17 09:00 01/09/17 09:34 Witch Corrina/ Glycerin (Tucks Pads) 1 pad BEDSIDE MEDICATION PRN CO HEMORRHOID/EPISIOTMY PAIN 01/09/17 00:30 01/09/17 05:30 Benzocaine (Dermoplast [place]) 1 spray BEDSIDE MEDICATION PRN TOP HEMORRHOID/EPISIOTMY PAIN 01/09/17 00:30 01/09/17 05:30 Dibucaine (Nupercainal) 1 applic BEDSIDE MEDICATION PRN CO HEMORRHOID/EPISIOTMY PAIN 01/09/17 00:30 Lanolin (Tjd-S-Eecrlq) 1 applic BEDSIDE MEDICATION PRN TOP BEDSIDE FOR MI TO NIPPLES 01/09/17 00:30 01/09/17 05:31 Measles/Mumps/ Rubella Vaccine Live (Mmr Ii Vaccine) 0.5 ml ONCE ONCE SC* 01/10/17 09:00 01/10/17 09:01 RED GOODE MD Jan 09, 2017 16:24
[2017-01-09 20:25] VITALS: BP 110/61; PULSE 89; RESP 18
[2017-01-10] MEDS: IBUPROFEN 600 MG TAB PO SCH ×3 (00:20→11:16)
[2017-01-10 04:20] VITALS: BP 93/57; PULSE 66; RESP 17
[2017-01-10 07:30] VITALS: BP 99/62; PULSE 66; RESP 16
[2017-01-10] MEDS ORDERED: MEASLES,MUMPS,RUBELLA VACCINE INJ SC* ONE (09:00)
[2017-01-10] MEDS: SENNA/DOCUSATE NA (8.6MG/50MG) TAB PO SCH (09:55)
--- NOTE | 2017-01-10 14:55 | DS ---
Date/Time of Note Date/Time of Note DATE: 01/10/17 TIME: 14:54 Obstetrical Discharge Record Final Diagnosis Final Diagnosis: Term delivered Vaginal Delivery Obstetrical Delivery: Spontaneous Condition on Discharge Physical Assessment Last Vitals: VSS Abdomen soft uterus firm lochia normal extremity normal discharged home follow- up at the clinic 2 weeks Bowel Movement: Yes Breast: Filling Calf Tenderness: No Patient Condition: Good RED GOODE MD Jan 10, 2017 14:55
== END 2017-01-10 16:13 | disposition home or self-care (01) | DRG 775 ==
LOC: OBT 20:55 → L-D 20:56 → OBT 21:02 → L-D 21:04 → PP1 23:45
PROVIDERS: ADMIT Obstetrics & Gynecology; ATTEND Obstetrics & Gynecology
PROC: 10E0XZZ Delivery of Products of Conception, External Approach (ICD-10-PCS; principal; 2017-01-08)
PROC: 0HQ9XZZ Repair Perineum Skin, External Approach (ICD-10-PCS; 2017-01-08)
DX: O70.0 First degree perineal laceration during delivery (principal); Z37.0 Single live birth; Z3A.39 39 weeks gestation of pregnancy
CPT/HCPCS: 85025; 85610; 85730; 86592; 86900; 86901; 99464; G0463; J2590; J7120